=== PATIENT | male | born 1985 | race Caucasian/White ===

== ENCOUNTER 2018-02-10 13:29 | Observation (INO) | payer OTHER, SELFPAY ==
[2018-02-10 13:49] VITALS: BMI 29.1
[2018-02-10 14:01] VITALS: BP 146/82; PULSE 102; RESP 20; TEMP 37.2; O2SAT 99
--- NOTE | 2018-02-10 14:05 | PCM.HP.STD ---
Problem List (1) Opiate withdrawal Status: Acute History of Present Illness Date of Admission: 02/10/18 Chief Complaint: seeking treatment for opiate withdrawal. The patient is a 32 year old M who is voluntarily seeking treatment for heroin withdrawal. Patient's last use was on the around 11 AM. Since then, patient has been having restlessness, diffuse myalgias, restless legs, rhinitis, abdominal cramps. Patient [facility] but he stated that he was not going through withdrawal at that time and then left the program after only 2days. Patient is seeking treatment through [facility] again for the same but is having now having withdrawal symptoms. Per the [facility] liaison, patient's intake CINA score was 17. [] Past Medical History Medical History: Medical History (Last Updated 02/10/18 @ 14:07 by Andrea Farris DO) Nephropathy N28.9 Allergies No Known Allergies Allergy (Verified 02/10/18 13:49) Home Medications: Ambulatory Orders Medication Instructions Recorded Omeprazole 20 mg PO DAILY 02/10/18 Smoking Status: Light Smoker (<10/day) Tobacco Use: Cigarettes Alcohol: None Drugs: Heroin - *Family History Maternal History Items: No pertinent history Review of Systems Constitutional: Reports: Chills. Denies: Anorexia, Night Sweats Eyes: Denies: Blurred vision, Double vision HEENT: Denies: Head Aches, Sinus Congestion, Sinus Drainage Cardiovascular: Denies: Chest Pain, Palpitations Respiratory: Denies: Cough, Shortness of breath at rest, Sputum production Gastrointestinal: Reports: - - Cramps. Denies: Abdominal Pain, Nausea, Vomiting Genitourinary: Denies: Dysuria Musculoskeletal: Denies: Joint Pain, Joint Tenderness Skin: Denies: Rash, Wounds Neurological: Denies: Blurred vision, Focal weakness, Numbness, Tingling Psychiatric: Denies: Anxiety, Depression Endocrine: Denies: Change in Body Habitus Hematologic/ Lymphatic: Denies: Easy Bruising, Easy Bleeding, Hx of blood clot Comment: A full 10 point ROS is negative except as above and in the HPI. VTE Information - Inpt Only VTE Present on Admission: No VTE Mechan Device Prophylaxis: None VTE Pharm Prophylaxis ordered?: No Reason prophylaxis not ordered:: Procedure Not Indicated Patient Problems: Active and Suspected Problems Opiate withdrawal (Acute) - Physical Exam General: Alert, Cooperative, No apparent distress HEENT: Atraumatic, Normocephalic Neck: No Nodes, Thyroid Normal Size and Texture Lungs: Clear to auscultation, Normal air movement, No rhonchi, No wheeze Cardiovascular: Regular rate, Regular Rhythm, Normal S1, Normal S2, No murmurs Abdomen: Bowel Sounds Present, Soft, Non Tender, Non-Distended, No Hepato-splenomegaly Extremities: No edema, No Calf Tenderness Skin: No rashes, No breakdown Musculoskeletal: No Tenderness to Palpation of Joints or Extremities, No Muscle Wasting Psych/Mental Status: Normal Affect, Appropriate Vital Signs Temp Pulse Resp BP Pulse Ox 37.2 C 102 H 20 H 146/82 H 99 02/10/18 14:01 02/10/18 14:01 02/10/18 14:01 02/10/18 14:01 02/10/18 14:01 Oxygen Delivery Method Room Air Weight: 94.846 kg Body Mass Index (BMI) 29.1 Assessment/Plan All Active Problems Opiate withdrawal (Acute) 1. Acute heroin withdrawal Intake CINA score of 17 Patient will be started on the medical stabilization protocol with Subutex taper. Additionally, patient will be on other occasions to assist with other somatic complaints. Patient was advised that these are as needed would need to request them if necessary. Patient was just enrolled in another program 2 weeks ago and left after only 2 days of treatment. Patient stated that he was not having withdrawal symptoms at that time. Is unclear why the patient would benefit accepted to the program if he was not having withdrawal symptoms or if he was embellishing his symptoms to be enrolled in the program. Patient stated that being on the Subutex made withdrawal symptoms. It is unclear if this is completely accurate representation of the details or if the patient is not forthcoming with certain details. [facility] to assist with outpatient program assistance. 2. 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 Will check his lab work Code Visit Inpatient E&M: 63750 Init Hosp L2
--- NOTE | 2018-02-10 14:09 | HP.PCM_ITS ---
Problem List (1) Opiate withdrawal Status: Acute History of Present Illness Date of Admission: 02/10/18 Chief Complaint: seeking treatment for opiate withdrawal. The patient is a 32 year old M who is voluntarily seeking treatment for heroin withdrawal. Patient's last use was on the around 11 AM. Since then, patient has been having restlessness, diffuse myalgias, restless legs, rhinitis, abdominal cramps. [facility] but he stated that he was not going through withdrawal at that time and then left the program after only 2days. Patient is seeking treatment through [facility] again for the same but is having now having withdrawal symptoms. Per the [facility] liaison, patient's intake CINA score was 17. [] Past Medical History Medical History: Medical History (Last Updated 02/10/18 @ 14:07 by Andrea Farris DO) Nephropathy N28.9 Allergies No Known Allergies Allergy (Verified 02/10/18 13:49) Home Medications: Ambulatory Orders Medication Instructions Recorded Omeprazole 20 mg PO DAILY 02/10/18 Smoking Status: Light Smoker (<10/day) Tobacco Use: Cigarettes Alcohol: None Drugs: Heroin - *Family History Maternal History Items: No pertinent history Review of Systems Constitutional: Reports: Chills. Denies: Anorexia, Night Sweats Eyes: Denies: Blurred vision, Double vision HEENT: Denies: Head Aches, Sinus Congestion, Sinus Drainage Cardiovascular: Denies: Chest Pain, Palpitations Respiratory: Denies: Cough, Shortness of breath at rest, Sputum production Gastrointestinal: Reports: - - Cramps. Denies: Abdominal Pain, Nausea, Vomiting Genitourinary: Denies: Dysuria Musculoskeletal: Denies: Joint Pain, Joint Tenderness Skin: Denies: Rash, Wounds Neurological: Denies: Blurred vision, Focal weakness, Numbness, Tingling Psychiatric: Denies: Anxiety, Depression Endocrine: Denies: Change in Body Habitus Hematologic/ Lymphatic: Denies: Easy Bruising, Easy Bleeding, Hx of blood clot Comment: A full 10 point ROS is negative except as above and in the HPI. VTE Information - Inpt Only VTE Present on Admission: No VTE Mechan Device Prophylaxis: None VTE Pharm Prophylaxis ordered?: No Reason prophylaxis not ordered:: Procedure Not Indicated Patient Problems: Active and Suspected Problems Opiate withdrawal (Acute) - Physical Exam General: Alert, Cooperative, No apparent distress HEENT: Atraumatic, Normocephalic Neck: No Nodes, Thyroid Normal Size and Texture Lungs: Clear to auscultation, Normal air movement, No rhonchi, No wheeze Cardiovascular: Regular rate, Regular Rhythm, Normal S1, Normal S2, No murmurs Abdomen: Bowel Sounds Present, Soft, Non Tender, Non-Distended, No Hepato- splenomegaly Extremities: No edema, No Calf Tenderness Skin: No rashes, No breakdown Musculoskeletal: No Tenderness to Palpation of Joints or Extremities, No Muscle Wasting Psych/Mental Status: Normal Affect, Appropriate Vital Signs Temp Pulse Resp BP Pulse Ox 37.2 C 102 H 20 H 146/82 H 99 02/10/18 14:01 02/10/18 14:01 02/10/18 14:01 02/10/18 14:01 02/10/18 14:01 Oxygen Delivery Method Room Air Weight: 94.846 kg Body Mass Index (BMI) 29.1 Assessment/Plan All Active Problems Opiate withdrawal (Acute) 1. Acute heroin withdrawal * Intake CINA score of 17 * Patient will be started on the medical stabilization protocol with Subutex taper. Additionally, patient will be on other occasions to assist with other somatic complaints. Patient was advised that these are as needed would need to request them if necessary. * Patient was just enrolled in another program 2 weeks ago and left after only 2 days of treatment. Patient stated that he was not having withdrawal symptoms at that time. Is unclear why the patient would benefit accepted to the program if he was not having withdrawal symptoms or if he was embellishing his symptoms to be enrolled in the program. Patient stated that being on the Subutex made withdrawal symptoms. It is unclear if this is completely accu rate representation of the details or if the patient is not forthcoming with certain details. * [facility] to assist with outpatient program assistance. 2. Nephropathy * Patient had issues with hematuria between 12 and 16 years old * That has resolved * Per the patient, patient creatinine normals have been okay and has not followed up with a marble mason since he was 20. * Will check his lab work Code Visit Inpatient E&M: 32745 Init Hosp L2
[2018-02-10 14:26] LABS: Amphetamine Urine VISTA NEGATIVE (<1000 ng/mL); Barbiturate Urine VISTA NEGATIVE (< 200 ng/mL); Benzodiazepine Urine VISTA POSITIVE (< 200 ng/mL); Cocaine Urine VISTA NEGATIVE (< 300 ng/mL); Ecstacy Urine VISTA NEGATIVE (< 500 ng/mL); Methadone Urine VISTA NEGATIVE (< 300 ng/mL); PCP Urine VISTA NEGATIVE (< 25 ng/mL); THC Urine VISTA NEGATIVE (< 50 ng/mL); Vista UDS pH Range 7
[2018-02-10 14:31] LABS: Absolute Lymphocyte Count 1.24 X10^3/ul (0.83-4.51); Absolute Neutrophil Count 4.1 X10^3/uL (2.0-7.7); Basophil# 0.01 X10^3/uL; Basophil% 0.2 % (0-1); Eosinophil# 0.05 X10^3/uL; Eosinophils% 0.9 % (0-5); Hematocrit 48.3 % (40-54); Hemoglobin 16.1 g/dl (13.0-16.5); Lymphocyte # 1.24 X10^3/ul (4.0); Lymphocyte % 21.1 % (19-41); Mean Corp Hgb Conc 33.3 g/gl (32-36); Mean Corpuscular Hgb 28.5 pg (27.0-32.0); Mean Corpuscular Volume 85.6 fL (80-94); Mean Platelet Vol. 9.8 fl (6.2-12.0); Monocyte% 8.5 % (0-10); Neutrophil # 4.06 X10^3/uL (2.7-7.7); Neutrophil % 69.1 % (47-70); Platelet Count 222 K/mm3 (150-450); RBC Distribution Width CV 16.4 % (11.6-14.6); RBC Distribution Width SD 51.6 fl (35.1-43.9); Red Blood Count 5.64 M/mm3 (4.6-6.2); White Blood Count 5.9 K/mm3 (4.4-11.0)
[2018-02-10 14:32] LABS: POSITIVE COUNT NO; POSITIVE DIFFERENTIAL NO; POSITIVE MORPHOLOGY NO
[2018-02-10 14:44] VITALS: BP 146/82; PULSE 102; RESP 20; TEMP 37.2
[2018-02-10 14:45] LABS: AST(SGOT) 30 U/L (15-37); Alanine Aminotransfer ALT/SGPT 60 U/L (16-61); Albumin, Serum 3.5 g/dL (3.2-5.0); Alkaline Phosphatase 74 U/L (45-117); Anion Gap 5 (5-15); BUN 15 mg/dL (7-18); BUN/Creat Ratio 14.7 RATIO (10-20); Calcium,Total 8.3 mg/dL (8.5-10.1); Chloride 109 mmol/L (98-107); Creatinine, Serum 1.02 mg/dL (0.70-1.30); EST Glomerular Filtration Rate 91 mL/min (>60); Est Glom Filt Rate - Afr Amer 110 mL/min (>60); Estimated Creatinine Clearance 112.79 ml/min; Globulin 3.4 g/dL (2.2-4.2); Glucose 93 mg/dL (74-106); Potassium 4.2 mmol/L (3.5-5.1); Protein, Total 6.9 g/dL (6.4-8.2); Sodium Level 142 mmol/L (136-145)
[2018-02-10] MEDS: hydrOXYzine PAM 25 MG Capsule 50 MG PO ×2 (14:46→21:37)
[2018-02-10] MEDS: Pramipexole Di-HCl 0.25 MG Tablet PO (14:46)
[2018-02-10] MEDS: Dicyclomine 10 MG Capsule 20 MG PO (14:48)
[2018-02-10] MEDS: Methocarbamol 750 MG Tablet PO (14:48)
[2018-02-10] MEDS: cloNIDine HCl 0.1 MG Tablet PO (14:49)
[2018-02-10] MEDS: Buprenorphine HCl 2 MG TAB.SUBL SL ×2 (14:50→22:56)
[2018-02-10] MEDS: Pantoprazole Sodium 20 MG Tablet PO (16:32)
[2018-02-10] MEDS: MELATONIN 3 MG TABLET PO (21:37)
[2018-02-10 22:52] VITALS: BP 122/81; PULSE 66; RESP 14; TEMP 36.7; O2SAT 97
[2018-02-11 03:05] VITALS: BP 121/73; PULSE 58; RESP 16; TEMP 36.5; O2SAT 97
[2018-02-11] MEDS: Buprenorphine HCl 2 MG TAB.SUBL SL ×3 (06:31→22:21)
[2018-02-11 09:00] VITALS: BP 141/65; PULSE 82; RESP 16; TEMP 37.1
[2018-02-11] MEDS: hydrOXYzine PAM 25 MG Capsule 50 MG PO ×2 (09:06→18:27)
[2018-02-11] MEDS: Pantoprazole Sodium 20 MG Tablet PO (09:06)
[2018-02-11] MEDS: Pramipexole Di-HCl 0.25 MG Tablet PO ×2 (09:06→22:21)
--- NOTE | 2018-02-11 09:31 | PN_ITS ---
Patient Problems: Active and Suspected Problems (Last Updated 02/10/18 @ 14:07 by Andrea Farris DO) Opiate withdrawal (Acute) Subjective: Feeling ok at the moment, He is tolerating the withdrawal protocol Vitals/I&O's: Vital Signs Temp Pulse Resp BP Pulse Ox 97.7 F L 58 L 16 121/73 H 97 02/11/18 03:05 02/11/18 03:05 02/11/18 03:05 02/11/18 03:05 02/11/18 03:05 Oxygen Delivery Method Room Air Weight: 209 lb 1.6 oz Body Mass Index (BMI) 29.1 Intake and Output for Last 24 Hours 02/09/18 02/10/18 02/11/18 23:59 23:59 23:59 Intake Total 420 / 420 200 / 200 Balance 420 / 420 200 / 200 General: Alert, Oriented x3, Cooperative, No apparent distress HEENT: Atraumatic, EOMI, Normocephalic Oral: Dry Mucosa Neck: Supple, No JVD Lungs: Clear to auscultation, Normal air movement, No rhonchi, No wheeze, No rales Cardiovascular: Regular rate, Regular Rhythm, Normal S1, Normal S2, No murmurs Abdomen: Soft, Non Tender, Non-Distended, No Hepato-splenomegaly Extremities: No edema, Capillary Refill Less than 3 Seconds Neurological: Neuro grossly intact, Sensory exam intact to light touch and pain Psych/Mental Status: Normal Affect, Appropriate Laboratory Results 02/10/18 14:00: Urine Opiates Screen POSITIVE H, Urine Methadone Screen NEGATIVE, Ur Barbiturates Screen NEGATIVE, Ur Phencyclidine Scrn NEGATIVE, Ur Amphetamines Screen NEGATIVE, U Methamphetamin-MDMA NEGATIVE, U Benzodiazepines Scrn POSITIVE H, Urine Cocaine Screen NEGATIVE, U Cannabinoids Screen NEGATIVE, Ur Drug Screen Comment 02/10/18 14:17: WBC 5.9, RBC 5.64, Hgb 16.1, Hct 48.3, MCV 85.6, MCH 28.5, MCHC 33.3, RDW 16.4 H, RDW Differential 51.6 H, Plt Count 222, MPV 9.8, Immature Gran % (Auto) 0.200, Neut % (Auto) 69.1, Lymph % (Auto) 21.1, [place] % (Auto) 8.5, Eos % (Auto) 0.9, Baso % (Auto) 0.2, Absolute Neuts (auto) 4.1, Absolute Lymphs (auto) 1.24, Total Counted Not Reportable 02/10/18 14:17: Sodium 142, Potassium 4.2, Chloride 109 H, Carbon Dioxide 28.0, Anion Gap 5, BUN 15, Creatinine 1.02, Estim Creat Clear Calc 112.79, Est GFR (MDRD) Af Amer 110, Est GFR (MDRD) Non-Af 91, BUN/Creatinine Ratio 14.7, Glucose 93, Calcium 8.3 L, Total Bilirubin 0.30, AST 30, ALT 60, Alkaline Phosphatase 74, Total Protein 6.9, Albumin 3.5, Globulin 3.4, Albumin/Globulin Ratio 1.0 Current Medications Acetaminophen (Tylenol) 500 mg PO Q4H PRN PRN PRN Reason: Temp > 100.4 F Buprenorphine HCl (Buprenorphine Hcl) 4 mg SL Q8H KRISTINA; Taper Stop: 02/13/18 18:59 Last Admin: 02/11/18 06:31 Dose: 4 mg Clonidine (Catapres) 0.1 mg PO Q2H PRN PRN PRN Reason: Hot/Cold Sweats or Anxiety Last Admin: 02/10/18 14:49 Dose: 0.1 mg Dicyclomine HCl (Bentyl) 20 mg PO Q6H PRN PRN PRN Reason: Abdomnial Discomfort Last Admin: 02/10/18 14:48 Dose: 20 mg Hydroxyzine HCl (Vistaril Vial) 50 mg IM Q6H PRN PRN PRN Reason: Breakthrough Anxiety Hydroxyzine Pamoate (Vistaril Pamoate Capsule) 50 mg PO Q6H PRN PRN PRN Reason: Mild Anxiety Last Admin: 02/11/18 09:06 Dose: 50 mg Ibuprofen (Motrin) 600 mg PO Q8H PRN PRN PRN Reason: Mild-Moderate Pain (1-5/10) Loperamide HCl (Imodium) 2 - 4 mg PO UD PRN PRN Reason: LOOSE STOOLS Melatonin (Melatonin) 3 mg PO QHS PRN PRN Reason: INSOMNIA Last Admin: 02/10/18 21:37 Dose: 3 mg Methocarbamol (Methocarbamol) 750 mg PO Q6H PRN PRN PRN Reason: Muscle Aches Last Admin: 02/10/18 14:48 Dose: 750 mg Pantoprazole Sodium (Protonix) 20 mg PO DAILY KRISTINA Last Admin: 02/11/18 09:06 Dose: 20 mg Pramipexole Dihydrochloride (Mirapex) 0.25 mg PO Q12H PRN PRN PRN Reason: Restless Legs Last Admin: 02/11/18 09:06 Dose: 0.25 mg Senna (Senokot) 1 tablet PO QHS PRN PRN Reason: Constipation Medical Necessity - Tobacco Use Smoking Status: Light Smoker (<10/day) Tobacco Use: Cigarettes Assessment/Plan All Active Problems (Last Updated 02/10/18 @ 14:07 by Andrea Farris DO) Opiate withdrawal (Acute) 1. Acute heroin withdrawal - C/w medical stabilization with subutex taper - Other medications per the [facility] protocol - States that he has plans for therapy as an outpatient - Will continue to monitor for worsening symptoms 2. Nephropathy - HAd hematuria as a child which has resolved - renal function is normal 3. GERD - stable - c/w home PPI DVT: Ambulation Code Visit Inpatient E&M: 42316 Subs Hosp L2
[2018-02-11] MEDS: cloNIDine HCl 0.1 MG Tablet PO ×3 (11:17→22:21)
--- NOTE | 2018-02-11 15:08 | CHAPLAIN ---
Type of Pastoral Visit _x__ Initial Visit ___ Follow-up Visit ___ On-call Visit ___ General Patient Visit ___ Spiritual Assessment ___ Family Conference ___ Bereavement ___ Rapid Response ___ Code Blue ___ Other (describe below) Pastoral Care Referral From _x__ Patient ___ Family ___ Nurse ___ Physician ___ Speech Language Specialist ___ Wooden Furniture Polisher ___ Other (describe below) Sacrament/Intervention ___ Active listening ___ Anointing ___ Restoration ___ Bereavement ___ Communion ___ Vesna exploration ___ ___ Life review ___ Prayer ___ Reconciliation ___ Sacrament of Sick _x__ Supportive presence ___ Wedding ___ Other (describe below) Pastoral Comments introduction to patient about spiritual support; pt says that he is doing fine for now but thank you for checking; pt says that he has supportive family and friends
[2018-02-11 15:37] VITALS: BP 131/67; PULSE 69; RESP 14; TEMP 37
[2018-02-11] MEDS: Ibuprofen 600 MG Tablet PO (18:26)
[2018-02-11 18:40] VITALS: BP 125/62; PULSE 89; RESP 16; TEMP 36.9
[2018-02-11 22:10] VITALS: BP 124/68; PULSE 62; RESP 16; TEMP 36.8
[2018-02-11] MEDS: MELATONIN 3 MG TABLET PO (22:21)
[2018-02-12 06:15] VITALS: BP 119/75; PULSE 70; RESP 16; TEMP 36.7
[2018-02-12] MEDS: cloNIDine HCl 0.1 MG Tablet PO ×5 (06:24→22:15)
[2018-02-12] MEDS: Buprenorphine HCl 2 MG TAB.SUBL SL ×2 (06:24→18:43)
[2018-02-12] MEDS: Methocarbamol 750 MG Tablet PO (06:24)
--- NOTE | 2018-02-12 09:02 | PCM.PN.HOSP ---
Patient Problems: Active and Suspected Problems (Last Updated 02/10/18 @ 14:07 by Andrea Farris DO) Opiate withdrawal (Acute) Subjective: No complaints, doing well, feels ok Vitals/I&O's: Vital Signs Temp Pulse Resp BP Pulse Ox 98.1 F 70 16 119/75 97 02/12/18 06:15 02/12/18 06:15 02/12/18 06:15 02/12/18 06:15 02/11/18 03:05 Oxygen Delivery Method Room Air Weight: 209 lb 1.6 oz Body Mass Index (BMI) 29.1 Intake and Output for Last 24 Hours 02/10/18 02/11/18 02/12/18 23:59 23:59 23:59 Intake Total 420 / 420 700 / 700 Balance 420 / 420 700 / 700 General: Alert, Oriented x3, Cooperative, No apparent distress HEENT: Atraumatic, EOMI, Normocephalic Oral: Dry Mucosa Neck: Supple, No JVD Lungs: Clear to auscultation, Normal air movement, No rhonchi, No wheeze, No rales Cardiovascular: Regular rate, Regular Rhythm, Normal S1, Normal S2, No murmurs Abdomen: Soft, Non Tender, Non-Distended, No Hepato-splenomegaly Extremities: No edema, Capillary Refill Less than 3 Seconds Neurological: Neuro grossly intact, Sensory exam intact to light touch and pain Psych/Mental Status: Normal Affect, Appropriate Current Medications Acetaminophen (Tylenol) 500 mg PO Q4H PRN PRN PRN Reason: Temp > 100.4 F Buprenorphine HCl (Buprenorphine Hcl) 2 mg SL Q12H KRISTINA; Taper Stop: 02/13/18 18:59 Last Admin: 02/12/18 06:24 Dose: 2 mg Clonidine (Catapres) 0.1 mg PO Q2H PRN PRN PRN Reason: Hot/Cold Sweats or Anxiety Last Admin: 02/12/18 06:24 Dose: 0.1 mg Dicyclomine HCl (Bentyl) 20 mg PO Q6H PRN PRN PRN Reason: Abdomnial Discomfort Last Admin: 02/10/18 14:48 Dose: 20 mg Hydroxyzine HCl (Vistaril Vial) 50 mg IM Q6H PRN PRN PRN Reason: Breakthrough Anxiety Hydroxyzine Pamoate (Vistaril Pamoate Capsule) 50 mg PO Q6H PRN PRN PRN Reason: Mild Anxiety Last Admin: 02/11/18 18:27 Dose: 50 mg Ibuprofen (Motrin) 600 mg PO Q8H PRN PRN PRN Reason: Mild-Moderate Pain (1-5/10) Last Admin: 02/11/18 18:26 Dose: 600 mg Loperamide HCl (Imodium) 2 - 4 mg PO UD PRN PRN Reason: LOOSE STOOLS Melatonin (Melatonin) 3 mg PO QHS PRN PRN Reason: INSOMNIA Last Admin: 02/11/18 22:21 Dose: 3 mg Methocarbamol (Methocarbamol) 750 mg PO Q6H PRN PRN PRN Reason: Muscle Aches Last Admin: 02/12/18 06:24 Dose: 750 mg Pantoprazole Sodium (Protonix) 20 mg PO DAILY KRISTINA Last Admin: 02/11/18 09:06 Dose: 20 mg Pramipexole Dihydrochloride (Mirapex) 0.25 mg PO Q12H PRN PRN PRN Reason: Restless Legs Last Admin: 02/11/18 22:21 Dose: 0.25 mg Senna (Senokot) 1 tablet PO QHS PRN PRN Reason: Constipation Medical Necessity - Tobacco Use Smoking Status: Light Smoker (<10/day) Tobacco Use: Cigarettes Assessment/Plan All Active Problems (Last Updated 02/10/18 @ 14:07 by Andrea Farris DO) Opiate withdrawal (Acute) 1. Acute heroin withdrawal - C/w medical stabilization with subutex taper - Other medications per the [facility] protocol - States that he has plans for therapy as an outpatient and will need to be discharged early on thursday - Will continue to monitor for worsening symptoms 2. Nephropathy - Had hematuria as a child which has resolved - renal function is normal 3. GERD - stable - c/w home PPI DVT: Ambulation Code Visit Inpatient E&M: 12350 Subs Hosp L2
[2018-02-12 11:50] VITALS: BP 124/70; PULSE 77; RESP 16; TEMP 36.8
[2018-02-12] MEDS: Pantoprazole Sodium 20 MG Tablet PO (11:55)
[2018-02-12] MEDS: hydrOXYzine PAM 25 MG Capsule 50 MG PO ×2 (11:55→18:43)
--- NOTE | 2018-02-12 15:17 | CHAPLAIN ---
patient claims to be feeling better, has a plan for treatment, and does not indicate need for other support at this time
[2018-02-12] MEDS: Pramipexole Di-HCl 0.25 MG Tablet PO (15:34)
[2018-02-12 18:45] VITALS: BP 121/69; PULSE 80; RESP 16; TEMP 36.9
[2018-02-12 22:00] VITALS: BP 116/70; PULSE 65; RESP 16; TEMP 36.6
[2018-02-12] MEDS: MELATONIN 3 MG TABLET PO (22:15)
[2018-02-13] MEDS: Buprenorphine HCl 2 MG TAB.SUBL SL (06:38)
[2018-02-13 06:40] VITALS: BP 110/69; PULSE 67; RESP 16; TEMP 36.6
--- NOTE | 2018-02-13 07:56 | DCINST_ITS ---
- Discharge Diagnoses Current Active Problems: Current Active and Chronic Problems (Last Updated 02/10/18 @ 14:07 by Andrea Farris DO) Opiate withdrawal (Acute) You will use the following diet at home:: Regular Your food should be the consistency of: Regular Your liquids should be the consistency of: Regular/Thin Discharge Activity: No Restrictions Call your doctor if you observe: Shortness of breath, Dizziness Allergies/Adverse Reactions: Allergies No Known Allergies Allergy (Verified 02/10/18 13:49) Medications to take at Discharge Omeprazole 20 mg PO DAILY 02/10/18 Primary Care Physician: Kolby Coronel,Out of [Primary Care Provider] - Please follow up with your Primary Care Physician in: In 3-5 days Test Results: Test results from this visit will be discussed in further detail at your follow- up appointment, if applicable.
--- NOTE | 2018-02-13 07:56 | PCM.DC.SUM ---
Discharge Date and Diagnosis - Problem List Patient Problems: Active and Suspected Problems (Last Updated 02/10/18 @ 14:07 by Andrea Farris DO) Opiate withdrawal (Acute) Date of Admission: 02/10/18 Date of Discharge: 02/13/18 - Primary Discharge Diagnosis Active and Suspected Problems (Last Updated 02/10/18 @ 14:07 by Andrea Farris DO) Opiate withdrawal (Acute) Hospital Course and Treatment Imaging Results: None [facility] Operations: None Procedures: None Summary of Care Provided: Per HPI: The patient is a 32 year old M who is voluntarily seeking treatment for heroin withdrawal. Patient's last use was on the around 11 AM. Since then, patient has been having restlessness, diffuse myalgias, restless legs, rhinitis, abdominal cramps. Patient was enrolled in a program [facility] but he stated that he was not going through withdrawal at that time and then left the program after only 2days. Patient is seeking treatment through [facility] again for the same but is having now having withdrawal symptoms. Per the [facility] liaison, patient's intake CINA score was 17. Vital Signs - 24 hr Temp Pulse Resp BP 02/13/18 06:40 97.8 F 67 16 110/69 02/12/18 22:00 98 F 65 16 116/70 02/12/18 18:45 98.5 F 80 16 121/69 H 02/12/18 11:50 98.2 F 77 16 124/70 H General: Alert, Oriented x3, Cooperative, No apparent distress HEENT: Atraumatic, EOMI, Normocephalic Oral: Dry Mucosa Neck: Supple, No JVD Lungs: Clear to auscultation, Normal air movement, No rhonchi, No wheeze, No rales Cardiovascular: Regular rate, Regular Rhythm, Normal S1, Normal S2, No murmurs Abdomen: Soft, Non Tender, Non-Distended, No Hepato-splenomegaly Extremities: No edema, Capillary Refill Less than 3 Seconds Neurological: Neuro grossly intact, Sensory exam intact to light touch and pain Psych/Mental Status: Normal Affect, Appropriate Hospital Course: 1. Heroin withdrawal - He presented for medical stabilization for opiod use. He is from the [facility] and has an appointment today at noon for an outpatient rehab facility. He has done well with the protocol and as completed all of the taper. He did request a nicotine patch while he was here but he refused one on discharge. 2. Tobacco use - Discussed cessation which he states he would like to do on his own without a nicotine patch. 3. His other medical diagnoses were evaluated and his home medications were continued where appropriate Patient Problems: Active and Suspected Problems (Last Updated 02/10/18 @ 14:07 by Andrea Farris DO) Opiate withdrawal (Acute) - Physical Exam Vital Signs Temp Pulse Resp BP Pulse Ox 97.8 F 67 16 110/69 97 02/13/18 06:40 02/13/18 06:40 02/13/18 06:40 02/13/18 06:40 02/11/18 03:05 Oxygen Delivery Method Room Air Weight: 209 lb 1.6 oz Body Mass Index (BMI) 29.1 Intake and Output for Last 24 Hours 02/11/18 02/12/18 02/13/18 23:59 23:59 23:59 Intake Total 700 / 700 500 / 500 700 / 700 Balance 700 / 700 500 / 500 700 / 700 Discharge Activity: No Restrictions Call your doctor if you observe: Shortness of breath, Dizziness Home Medications: Medications to take at Discharge Omeprazole 20 mg PO DAILY 02/10/18 Primary Care Physician: Kolby Coronel,Out of [Primary Care Provider] - Please follow up with your Primary Care Physician in: In 3-5 days Disposition: Home Minutes spent on discharge:: 35 Patient Condition:: Good Medical Necessity - Tobacco Use Smoking Status: Light Smoker (<10/day) Tobacco Use: Cigarettes Meaningful Use Info Meaningful Use Diagnoses (Choose all that apply): None applicable Code Visit Inpatient E&M: 52664 Disch Hosp
--- NOTE | 2018-02-13 08:01 | DS.PCM_ITS ---
Discharge Date and Diagnosis - Problem List Patient Problems: Active and Suspected Problems (Last Updated 02/10/18 @ 14:07 by Andrea Farris DO) Opiate withdrawal (Acute) Date of Admission: 02/10/18 Date of Discharge: 02/13/18 - Primary Discharge Diagnosis Active and Suspected Problems (Last Updated 02/10/18 @ 14:07 by Andrea Farris DO) Opiate withdrawal (Acute) Hospital Course and Treatment Imaging Results: None [facility] Operations: None Procedures: None Summary of Care Provided: Per HPI: The patient is a 32 year old M who is voluntarily seeking treatment for heroin withdrawal. Patient's last use was on the around 11 AM. Since then, patient has been having restlessness, diffuse myalgias, restless legs, rhinitis, abdominal cramps. Patient was enrolled in a program [facility] but he stated that he was not going through withdrawal at that time and then left the program after only 2days. Patient is seeking treatment through [facility] again for the same but is having now having withdrawal symptoms. Per the [facility] liaison, patient's intake CINA score was 17. Vital Signs - 24 hr Temp Pulse Resp BP 02/13/18 06:40 97.8 F 67 16 110/69 02/12/18 22:00 98 F 65 16 116/70 02/12/18 18:45 98.5 F 80 16 121/69 H 02/12/18 11:50 98.2 F 77 16 124/70 H General: Alert, Oriented x3, Cooperative, No apparent distress HEENT: Atraumatic, EOMI, Normocephalic Oral: Dry Mucosa Neck: Supple, No JVD Lungs: Clear to auscultation, Normal air movement, No rhonchi, No wheeze, No rales Cardiovascular: Regular rate, Regular Rhythm, Normal S1, Normal S2, No murmurs Abdomen: Soft, Non Tender, Non-Distended, No Hepato-splenomegaly Extremities: No edema, Capillary Refill Less than 3 Seconds Neurological: Neuro grossly intact, Sensory exam intact to light touch and pain Psych/Mental Status: Normal Affect, Appropriate Hospital Course: 1. Heroin withdrawal - He presented for medical stabilization for opiod use. He is from the [facility] and has an appointment today at noon for an outpatient rehab facility. He has done well with the protocol and as completed all of the taper. He did request a nicotine patch while he was here but he refused one on discharge. 2. Tobacco use - Discussed cessation which he states he would like to do on his own without a nicotine patch. 3. His other medical diagnoses were evaluated and his home medications were continued where appropriate Patient Problems: Active and Suspected Problems (Last Updated 02/10/18 @ 14:07 by Andrea Farris DO) Opiate withdrawal (Acute) - Physical Exam Vital Signs Temp Pulse Resp BP Pulse Ox 97.8 F 67 16 110/69 97 02/13/18 06:40 02/13/18 06:40 02/13/18 06:40 02/13/18 06:40 02/11/18 03:05 Oxygen Delivery Method Room Air Weight: 209 lb 1.6 oz Body Mass Index (BMI) 29.1 Intake and Output for Last 24 Hours 02/11/18 02/12/18 02/13/18 23:59 23:59 23:59 Intake Total 700 / 700 500 / 500 700 / 700 Balance 700 / 700 500 / 500 700 / 700 Discharge Activity: No Restrictions Call your doctor if you observe: Shortness of breath, Dizziness Home Medications: Medications to take at Discharge Omeprazole 20 mg PO DAILY 02/10/18 Primary Care Physician: Kolby Coronel,Out of [Primary Care Provider] - Please follow up with your Primary Care Physician in: In 3-5 days Disposition: Home Minutes spent on discharge:: 35 Patient Condition:: Good Medical Necessity - Tobacco Use Smoking Status: Light Smoker (<10/day) Tobacco Use: Cigarettes Meaningful Use Info Meaningful Use Diagnoses (Choose all that apply): None applicable Code Visit Inpatient E&M: 46637 Disch Hosp
[2018-02-13 08:08] VITALS: BP 128/85; PULSE 77; RESP 16; TEMP 36.7; O2SAT 100
--- OUTSIDE RECORDS SUMMARY | 2018-04-07 23:01 | XMS RPT_ITS ---
:1985 Author Organization [facility] Care Team Providers Name Role Phone Jopperi, Andrea Admitting Unavailable Jopperi, Andrea Referring Unavailable COMFORT ROJAS Primary Care Unavailable Inderjit Flores Attending Unavailable Jopperi, Andrea Admitting Unavailable Jopperi, Andrea Attending Unavailable Jopperi, Adnrea Referring Unavailable COMFORT ROJAS Primary Care Unavailable Jopperi, Andrea Consulting Unavailable Jopperi, Andrea Admitting Unavailable Inderjit Flores Attending Unavailable Jopperi, Andrea Referring Unavailable COMFORT ROJAS Primary Care Unavailable Inderjit Flores Consulting Unavailable Jopperi, Andrea Admitting Unavailable Inderjit Flores Attending Unavailable Jopperi, Andrea Referring Unavailable COMFORT ROJAS Primary Care Unavailable Inderjit Flores Consulting Unavailable Jopperi, Andrea Admitting Unavailable Inderjit Flores F Attending Unavailable Jopperi, Andrea Referring Unavailable COMFORT ROJAS Primary Care Unavailable Inderjit Flores Consulting Unavailable PROBLEMS PROBLEMS No Problem Records FoundPROCEDURES PROCEDURES No Procedure Records FoundRESULTS RESULTS DISCHARGE SUMMARY Observed: 02/13/2018 Status: F Source: [place] 8:01 AM [facility] REPOSITORY [facility] Medical Records Department [address] [place] [address] Discharge Summary 02/13/18 0756 MR#: [id number] Acct: [id number] Name: ALFONZO WATERS Rep #: [id number] : 1985 32 From: Inderjit Flores MD PCP: OUT OF TOWN DOCTOR Status: ADM IN Y Location: [facility] [id number] Discharge Date and Diagnosis - Problem List Patient Problems: Active and Suspected Problems (Last Updated 02/10/18 @ 14:07 by Andrea Farris DO) Opiate withdrawal (Acute) Date of Admission: 02/10/18 Date of Discharge: 02/13/18 - Primary Discharge Diagnosis Active and Suspected Problems (Last Updated 02/10/18 @ 14:07 by Andrea Farris DO) Opiate withdrawal (Acute) Hospital Course and Treatment Imaging Results: None [facility] Operations: None Procedures: None Summary of Care Provided: Per HPI: The patient is a 32 year old M who is voluntarily seeking treatment for heroin withdrawal. Patient's last use was on the around 11 AM. Since then, patient has been having restlessness, diffuse myalgias, restless legs, rhinitis, abdominal cramps. Patient was enrolled in a program [facility] but he stated that he was not going through withdrawal at that time and then left the program after only 2days. Patient is seeking treatment through [facility] again for the same but is having now having withdrawal symptoms. Per the [facility] liaison, patient's intake CINA score was 17. Vital Signs - 24 hr 02/13/18 06:40 97.8 F 67 16 110/69 02/12/18 22:00 98 F 65 16 116/70 02/12/18 18:45 98.5 F 80 16 121/69 H 02/12/18 11:50 98.2 F 77 16 124/70 H General: Alert, Oriented x3, Cooperative, No apparent distress HEENT: Atraumatic, EOMI, Normocephalic Oral: Dry Mucosa Neck: Supple, No JVD Lungs: Clear to auscultation, Normal air movement, No rhonchi, No wheeze, No rales Cardiovascular: Regular rate, Regular Rhythm, Normal S1, Normal S2, No murmurs Abdomen: Soft, Non Tender, Non-Distended, No Hepato-splenomegaly Extremities: No edema, Capillary Refill Less than 3 Seconds Neurological: Neuro grossly intact, Sensory exam intact to light touch and pain Psych/Mental Status: Normal Affect, Appropriate Hospital Course: 1. Heroin withdrawal - He presented for medical stabilization for opiod use. He is from the [facility] and has an appointment today at noon for an outpatient rehab facility. He has done well with the protocol and as completed all of the taper. He did request a nicotine patch while he was here but he refused one on discharge. 2. Tobacco use - Discussed cessation which he states he would like to do on his own without a nicotine patch. 3. His other medical diagnoses were evaluated and his home medications were continued where appropriate Patient Problems: Active and Suspected Problems (Last Updated 02/10/18 @ 14:07 by Andrea Farris DO) Opiate withdrawal (Acute) - Physical Exam Vital Signs Temp Pulse Resp BP Pulse Ox 97.8 F 67 16 110/69 97 02/13/18 06:40 02/13/18 06:40 02/13/18 06:40 02/13/18 06:40 02/11/18 03:05 Oxygen Delivery Method Room Air Weight: 209 lb 1.6 oz Body Mass Index (BMI) 29.1 Intake and Output for Last 24 Hours Intake Total 700 / 700 500 / 500 700 / 700 Balance 700 / 700 500 / 500 700 / 700 Discharge Activity: No Restrictions Call your doctor if you observe: Shortness of breath, Dizziness Home Medications: Medications to take at Discharge Omeprazole 20 mg PO DAILY 02/10/18 Primary Care Physician: [facility] Doctor,Out of [Primary Care Provider] - Please follow up with your Primary Care Physician in: In 3- 5 days Disposition: Home Minutes spent on discharge:: 35 Patient Condition:: Good Medical Necessity - Tobacco Use Smoking Status: Light Smoker (<10/day) Tobacco Use: Cigarettes Meaningful Use Info Meaningful Use Diagnoses (Choose all that apply): None applicable Code Visit Inpatient E AND M: 13040 Disch Hosp 02/13/18 0801 <Electronically signed by Inderjit Flores MD> Date Inderjit Flores MD Cosigner Signature (if applicable): Date CC: Inderjit Flores MD; OUT OF [facility] DOCTOR Signed DISCHARGE INSTRUCTION Observed: 02/13/2018 Status: F Source: [facility] 7:[facility] Medical Records Department [address] [place] [address] Instructions for Home/Discharge Instructions 02/13/18 0755 MR#: [id number] Acct: [id number] Name: ALFONZO WATERS Rep #: [id number] : 1985 32 From: Inderjit Flores MD PCP: OUT OF [facility] DOCTOR Status: ADM IN - Discharge Diagnoses Current Active Problems: Current Active and Chronic Problems (Last Updated 02/10/18 @ 14:07 by Andrea Farris DO) Opiate withdrawal (Acute) You will use the following diet at home:: Regular Your food should be the consistency of: Regular Your liquids should be the consistency of: Regular/Thin Discharge Activity: No Restrictions Call your doctor if you observe: Shortness of breath, Dizziness Allergies/Adverse Reactions: Allergies No Known Allergies Allergy (Verified 02/10/18 13:49) Medications to take at Discharge Omeprazole 20 mg PO DAILY 02/10/18 Primary Care Physician: [facility] Doctor,Out of [Primary Care Provider] - Please follow up with your Primary Care Physician in: In 3- 5 days Test Results: Test results from this visit will be discussed in further detail at your follow-up appointment, if applicable. 02/13/18 0756 <Electronically signed by Inderjit Flores MD> Date Inderjit Flores MD CC: OUT OF [facility] DOCTOR CBC W/DIFF, AUTOMATED Collected: 02/10/2018 Status: F Source: [place] 2:17 PM [facility] REPOSITORY TYPE CODE TESTS RESULT OUT OF RANGE REFERENCE UNITS LAB L100.1000 4.4-11.0 K/mm3 Normal WBC 5.9 LAB L100.1200 4.6-6.2 M/mm3 Normal RBC 5.64 LAB L100.1300 13.0-16.5 g/dl Normal HGB 16.1 LAB L100.1400 40-54 % Normal HCT 48.3 LAB L100.1500 80-94 fL Normal MCV 85.6 LAB L100.1600 27.0-32.0 pg Normal MCH 28.5 LAB L100.1700 32-36 g/gl Normal MCHC 33.3 LAB L100.1810 11.6-14.6 % High RDW CV 16.4 LAB L100.1820 35.1-43.9 fl High RDW SD 51.6 LAB L100.1900 150-450 K/mm3 Normal PLT 222 LAB L100.2000 6.2-12.0 fl Normal MPV 9.8 LAB L100.2100 47-70 % Normal NEUT% 69.1 LAB L100.2200 19-41 % Normal LY% 21.1 LAB L100.2300 0-10 % Normal MONO% 8.5 LAB L100.2400 0-5 % Normal EO% 0.9 LAB L100.2500 0-1 % Normal BASO% 0.2 LAB L100.2550 0.0-0.9 % Normal IM GRAN % 0.200 Result Comment: IG% - Immature Granulocytes (promyelocytes, myelocytes and metamyelocytes) > 1% indicates that a LEFT SHIFT is Present. LAB L100.2620 2.0-7.7 X10 3/uL Normal Absolute Neut 4.1 LAB L100.2720 0.83-4.51 X10 3/ul Normal Absolute Lymph 1.24 Performed By: #### L100.0100 #### [facility] [address] [place], [address] COMPREHENSIVE METABOLIC Collected: 02/10/2018 Status: F Source: [facility] 2:17 PM [facility] REPOSITORY TYPE CODE TESTS RESULT OUT OF RANGE REFERENCE UNITS LAB L501.0100 74-106 mg/dL Normal GLU 93 Result Comment: Please note revised GLUCOSE reference range effective 2017. LAB L501.1000 7-18 mg/dL Normal BUN 15 LAB L501.1100 0.70-1.30 mg/dL Normal CREAT,SERUM 1.02 Result Comment: The validity of the calculated GFR AND GFRAA in patients over 70 years has not been determined. Clinical correlation is essential. LAB L501.1110 >60 mL/min Normal EST GFR 91 Result Comment: Non- GFR Calc LAB L501.1115 >60 mL/min Normal EST GFR - AA 110 Result Comment: GFR Calc LAB L501.1255 ml/min Normal Estimated CRCL 112.79 LAB L501.1300 10-20 RATIO BUN/CRE Normal 14.7 LAB L501.1500 6.4-8. g/dL 2 T PROT Normal 6.9 LAB L501.1800 3.2-5. g/dL 0 ALB Normal 3.5 LAB L501.1950 2.2-4. g/dL 2 GLOB Normal 3.4 LAB L501.2000 0.9-2. RATIO 4 A/G Normal 1.0 LAB L501.2200 8.5-10 mg/dL Low .1 CA 8.3 LAB L501.4100 15-37 U/L AST Normal 30 LAB L501.4305 45-117 U/L ALK P Normal 74 LAB L501.4405 16-61 U/L ALT Normal 60 LAB L501.4600 0.20-1 mg/dL .00 T BILI Normal 0.30 LAB L501.5300 136-14 mmol/L 5 NA Normal 142 LAB L501.5600 3.5-5. mmol/L 1 K Normal 4.2 LAB L501.5900 98-107 mmol/L High CL 109 LAB L501.6100 21.0-3 mmol/L 2.0 CO2 Normal 28.0 LAB L501.6200 5-15 GAP Normal 5 Performed By: #### L500.4050 #### [facility] [address] [place], [address] HISTORY AND PHYSICAL Observed: 02/10/2018 Status: F Source: [place] EXAM 2:13 PM [facility] REPOSITORY [facility] Medical Records Department [address] [place] [address] History and Physical 02/10/18 1405 MR#: [id number] Acct: [id number] Name: ALFONZO WATERS Rep #: [id number] : 1985 32 From: Andrea Farris DO PCP: OUT OF TOWN DOCTOR Status: ADM IN Y Location: MS2 DX902-7 Problem List (1) Opiate withdrawal Status: Acute History of Present Illness Date of Admission: 02/10/18 Chief Complaint: seeking treatment for opiate withdrawal. The patient is a 32 year old M who is voluntarily seeking treatment for heroin withdrawal. Patient's last use was on the around 11 AM. Since then, patient has been having restlessness, diffuse myalgias, restless legs, rhinitis, abdominal cramps. Patient was enrolled in a program [facility] but he stated that he was not going through withdrawal at that time and then left the program after only 2days. Patient is seeking treatment through [facility] again for the same but is having now having withdrawal symptoms. Per the [facility] liaison, patient's intake CINA score was 17. [] Past Medical History Medical History: Medical History (Last Updated 02/10/18 @ 14:07 by Andrea Farris DO) Nephropathy N28.9 Allergies No Known Allergies Allergy (Verified 02/10/18 13:49) Home Medications: Ambulatory Orders Medication Instructions Recorded Omeprazole 20 mg PO DAILY 02/10/18 Smoking Status: Light Smoker (<10/day) Tobacco Use: Cigarettes Alcohol: None Drugs: Heroin - *Family History Maternal History Items: No pertinent history Review of Systems Constitutional: Reports: Chills. Denies: Anorexia, Night Sweats Eyes: Denies: Blurred vision, Double vision HEENT: Denies: Head Aches, Sinus Congestion, Sinus Drainage Cardiovascular: Denies: Chest Pain, Palpitations Respiratory: Denies: Cough, Shortness of breath at rest, Sputum production Gastrointestinal: Reports: - - Cramps. Denies: Abdominal Pain, Nausea, Vomiting Genitourinary: Denies: Dysuria Musculoskeletal: Denies: Joint Pain, Joint Tenderness Skin: Denies: Rash, Wounds Neurological: Denies: Blurred vision, Focal weakness, Numbness, Tingling Psychiatric: Denies: Anxiety, Depression Endocrine: Denies: Change in Body Habitus Hematologic/ Lymphatic: Denies: Easy Bruising, Easy Bleeding, Hx of blood clot Comment: A full 10 point ROS is negative except as above and in the HPI. VTE Information - Inpt Only VTE Present on Admission: No VTE Mechan Device Prophylaxis: None VTE Pharm Prophylaxis ordered?: No Reason prophylaxis not ordered:: Procedure Not Indicated Patient Problems: Active and Suspected Problems Opiate withdrawal (Acute) - Physical Exam General: Alert, Cooperative, No apparent distress HEENT: Atraumatic, Normocephalic Neck: No Nodes, Thyroid Normal Size and Texture Lungs: Clear to auscultation, Normal air movement, No rhonchi, No wheeze Cardiovascular: Regular rate, Regular Rhythm, Normal S1, Normal S2, No murmurs Abdomen: Bowel Sounds Present, Soft, Non Tender, Non-Distended, No Hepato-splenomegaly Extremities: No edema, No Calf Tenderness Skin: No rashes, No breakdown Musculoskeletal: No Tenderness to Palpation of Joints or Extremities, No Muscle Wasting Psych/Mental Status: Normal Affect, Appropriate Vital Signs Temp Pulse Resp BP Pulse Ox 37.2 C 102 H 20 H 146/82 H 99 02/10/18 14:01 02/10/18 14:01 02/10/18 14:01 02/10/18 14:01 02/10/18 14:01 Oxygen Delivery Method Room Air Weight: 94.846 kg Body Mass Index (BMI) 29.1 Assessment/Plan All Active Problems Opiate withdrawal (Acute) 1. Acute heroin withdrawal * Intake CINA score of 17 * Patient will be started on the medical stabilization protocol with Subutex taper. Additionally, patient will be on other occasions to assist with other somatic complaints. Patient was advised that these are as needed would need to request them if necessary. * Patient was just enrolled in another program 2 weeks ago and left after only 2 days of treatment. Patient stated that he was not having withdrawal symptoms at that time. Is unclear why the patient would benefit accepted to the program if he was not having withdrawal symptoms or if he was embellishing his symptoms to be enrolled in the program. Patient stated that being on the Subutex made withdrawal symptoms. It is unclear if this is completely accurate representation of the details or if the patient is not forthcoming with certain details. * [facility] to assist with outpatient program assistance. 2. Nephropathy * Patient had issues with hematuria between 12 and 16 years old * That has resolved * Per the patient, patient creatinine normals have been okay and has not followed up with a marinator since he was 20. * Will check his lab work Code Visit Inpatient E AND M: 85691 Init Hosp L2 02/10/18 1413 <Electronically signed by Andrea Farris DO> Date Andrea Farris DO Cosigner Signature: Date (if applicable) CC: Andrea Farris DO; OUT OF TOWN DOCTOR Signed URINE DRUG SCREEN Collected: 02/10/2018 Status: F Source: [place] ([place]IST[place]) 2:00 PM [facility] REPOSITORY TYPE CODE TESTS RESULT OUT OF RANGE REFERENCE UNITS LAB L505.0075 TO BE Normal CONFIRMED Result Comment: CONFIRMATORY TESTING FOR ALL POSITIVE URINE DRUG SCREEN RESULTS WILL ONLY BE SENT OUT UPON PHYSICIAN ORDER. VISTA Urine Drug Screen methods provide only preliminary analytical test results. A more specific alternate chemical method must be used in order to obtain a confirmed analytical result. Gas chromatography/mass spectrometery (GC/MS) is the preferred confirmatory method. Clinical consideration and professional judgement should be applied to any drug of abuse test result, particularly when preliminary positive results are used. URINE TCA TESTING MUST BE ORDERED SEPARATELY. USE TEST MNEMONIC: [facility] LAB L505.5005 VISTA UDS PH 7 Normal LAB L505.5015 <1000 ng/mL AMPHETAMINES Normal NEGATIVE LAB L505.5025 < 200 ng/mL BARBITIURATES Normal NEGATIVE LAB L505.5035 < 200 High ng/mL BENZODIAZIPINE POSITIVE LAB L505.5045 < 300 ng/mL COCAINE Normal NEGATIVE LAB L505.5055 < 500 ng/mL ECSTACY Normal NEGATIVE LAB L505.5065 < 300 ng/mL METHADONE Normal NEGATIVE LAB L505.5075 < 300 High ng/mL OPIATES POSITIVE LAB L505.5085 < 25 ng/mL PCP Normal NEGATIVE LAB L505.5095 < 50 ng/mL THC Normal NEGATIVE Performed By: #### L505.5000 #### [facility] [address] [place], [place], [address] ALLERGIES ALLERGIES DATE TYPE / CODE NAME / CODE REACTION SEVERITY SOURCE 02/10/2018 Drug No Known Unknown [facility] Allergy/4160 Allergies/F00 [facility] 31039(SNOMED [id number](RXNOR Repository CT) M) ENCOUNTERS ENCOUNTERS ADMIT/DISCHARGE ACCOUNT ADMITTING ENCOUNTER LOCATION SOURCE NUMBER CLASS 02/10/2018/ [id number] Andrea Farris Inpatient [place] 8 7 Encounter [facility] ing:[id number]: Repository [id number]: 1 02/10/2018 [id number] Kaleigh Andrea Ambulatory BMSBuilding:B [place] 7 [place] Repository 02/10/2018 [id number] Ceasarjaida, Anrdea Ambulatory BMSBuilding:B [place] [address] [place] Repository 02/10/2018 [id number] Kaleigh Andrea Ambulatory BMSBuilding:B [place] 6 [place] Repository 02/10/2018 [id number] Ceasarjaida Andrea Ambulatory BMSBuilding:B [place] 1 [place] Repository PAYERS PAYERS ENCOUNTER GUARANTOR PAYER SUBSCRIBER SOURCE 02/10/2018 ALFONZO Sanchez Primary Insurance:REVA Garcia [id number] MUTUAL TPAPolicy WEALLEANSDOB: [facility] Number: [id number], [place] [id number] Repository [address]Wfa: ([phone]) Date:8276-74-36[phone] () [address], [place] [address]UB: CHECK WEBSITE 02/10/2018 Secondary NOT GIVENUNK [place] Insurance:SELF PAY [facility] Number: Effective Repository Date:2018-02-10 02/10/2018 ALFONZO Sanchez Primary Insurance:REVA Garcia [id number] MUTUAL TPAPolicy WEALLEANSDOB: [facility] Number: [id number], [place] [id number] Repository [address]Ywo: ([phone]) Date:9610-93-15[phone] () [address]FG[place], [place] [address]OT: CHECK WEBSITE 02/10/2018 Secondary NOT GIVENUNK [place] Insurance:SELF PAY [facility] Number: Effective Repository Date:2018-02-10 02/10/2018 ALFONZO Sanchez Primary Insurance:REVA Garcia [id number] MUTUAL TPAPolicy WEALLEANSDOB: [facility] Number: [id number], [place] [id number] Repository [address]Mmo: [phone]) Date:6254-21-55JK [phone] () [address], [place] [address]BM: CHECK WEBSITE 02/10/2018 Secondary NOT GIVENUNK [place] Insurance:SELF PAY [facility] Number: Effective Repository Date:2018-02-10 02/10/2018 ALFONZO Sanchez Primary Insurance:MED ALFONZO W [place] [id number] MUTUAL TPAPolicy WEALLEANSDOB: Counts Include [facility] LOCUST Number: [id number], [place] [id number] Repository [address]Sip: [phone]) Date:7043-08-52GS [phone] () [address]ON[place], [place] [address]GC: CHECK WEBSITE 02/10/2018 Secondary NOT GIVENUNK [place] Insurance:SELF PAY [facility] Number: Effective Repository Date:2018-02-10 02/10/2018 ALFONZO Sanchez Primary Insurance:MED ALFONZO W [place] [id number] MUTUAL TPAPolicy WEALLEANSDOB: Counts Include [address] [facility] [place] Number: [id number], [place] [id number] Repository [address]Kgd: ([phone]) Date:1462-94-56[phone] () [address]IMRTHOQZ, [place] [address]BM: CHECK WEBSITE 02/10/2018 Secondary NOT GIVENUNK [place] Insurance:SELF PAY [facility] Number: Effective Repository Date:2018-02-10
== END 2018-02-13 08:25 | disposition home or self-care (01) | DRG 897 ==
PROVIDERS: Visit Provider Family Medicine
DX: F11.23 Opioid dependence with withdrawal (principal); F17.210 Nicotine dependence, cigarettes, uncomplicated; K21.9 Gastro-esophageal reflux disease without esophagitis
CPT/HCPCS: 36415; 80053; 80307; 85025; 99218; G0378; G0379